=== PATIENT | male | born 1965 | race Caucasian/White ===

== ENCOUNTER 2018-03-01 09:36 | Day surgery (SDC) | payer OTHER ==
[2018-03-01] MEDS: NS 1,000 ML IV (09:45)
[2018-03-01] MEDS ORDERED: LIDOCAINE 2% INJ 100 MG/5 ML SDV (FOR ANES.) As Ordered (10:33)
[2018-03-01] MEDS ORDERED: fentaNYL 100 MCG/2 ML INJECTION (J3010) As Ordered (10:33)
[2018-03-01] MEDS ORDERED: PROPOFOL 200 MG/20 ML VIAL As Ordered ×2 (10:33)
== END 2018-03-01 11:38 | disposition home or self-care (01) ==
LOC: M OPP 11:38
DX: Z12.11 Encounter for screening for malignant neoplasm of colon (principal); K64.0 First degree hemorrhoids; R12 Heartburn; K29.70 Gastritis, unspecified, without bleeding; K21.9 Gastro-esophageal reflux disease without esophagitis; Z87.11 Personal history of peptic ulcer disease; Z88.1 Allergy status to other antibiotic agents; Z79.899 Other long term (current) drug therapy; Z80.3 Family history of malignant neoplasm of breast
CPT/HCPCS: 45378

== ENCOUNTER 2019-11-03 01:22 | Emergency (ER) | payer OTHER ==
[~2019-11-03] VITALS: Ht 188 cm; Wt 95.5 kg
[~2019-11-03 01:22] MED LIST: OMEP1CAP73 PO
[2019-11-03 01:23] VITALS: BP 182/88
[2019-11-03] MEDS ORDERED: TETRACAINE 0.5% OPHTH SOLN 4ML OS ONE (02:00)
[2019-11-03] MEDS ORDERED: DERMABOND TOPICAL SKIN ADHESIVE TOP ONE (02:30)
[2019-11-03] MEDS ORDERED: TETANUS/DIPHTHERIA TOX ADSORB ADULT 0.5ML SYR/VIAL (90714) IM ONE (02:30)
== END 2019-11-03 02:54 | disposition home or self-care (01) ==
LOC: M ED 01:22
DX: S01.112A Laceration without foreign body of left eyelid and periocular area, initial encounter (principal); W22.8XXA Striking against or struck by other objects, initial encounter; Y92.89 Other specified places as the place of occurrence of the external cause; K21.9 Gastro-esophageal reflux disease without esophagitis; Z79.899 Other long term (current) drug therapy; Z88.1 Allergy status to other antibiotic agents

== ENCOUNTER → 2024-01-20 | Outpatient (REF) | payer OTHER ==
[2024-01-24 00:33] LABS: BORRELIA SPECIES DNA NOT DETECTED (NOT DETECT)
[2024-01-24 01:48] LABS: Anaplasma phagocytophilum NOT DETECTED (NOT DETECT); Babesia microti NOT DETECTED (NOT DETECT); Ehrlichia chaffeensis NOT DETECTED (NOT DETECT)
[2024-01-25 19:17] LABS: LYME TOTAL ANTIBODY CIA <= 0.90 Index (<=0.90)
== END ==
LOC: M LAB REF 12:19
PROVIDERS: ATTEND Family Medicine
DX: Z11.59 Encounter for screening for other viral diseases (principal)